=== PATIENT | female | born 1990 | race Two or more races ===

== ENCOUNTER 2024-06-15 09:18 | Inpatient (IN) ==
[2024-06-15] MEDS ORDERED: Lidocaine 1% VIAL 10 MG/ML 30 ML VIAL INJ PRN (09:52)
[2024-06-15] MEDS: Buffered Lidocaine 1% SYRIN 1 ml INTRADERM ONE (10:17)
[2024-06-15] MEDS: miSOPROStol 100 mcg TAB VAGINAL ONE (10:30)
[2024-06-15 10:55] LABS: Urine Benzodiazepine Screen None Detected (None Detect); Urine Cannabinoids Screen None Detected (None Detect); Urine Opiates Screen None Detected (None Detect)
[2024-06-15] MEDS: Dinoprostone 10 MG VAG.SUPP VAGINAL ONE (22:45)
[2024-06-16] MEDS: Ondansetron ODT 4 mg TAB 4 MG TAB PO PRN (04:06)
[2024-06-16] MEDS: Lactated Ringers 1000 ml BAG 1,000 ML IV ONE (09:34)
[2024-06-16 09:53] LABS: ABS Monocytes 0.6 10^3/uL (0.0-0.9); Hematocrit 33.2 % (35-45); Hemoglobin 11.3 g/dL (11.5-14.3); Lymphocyte % 8.8 %; Mean Corpuscular Hemoglobin 28.1 pg (27-33); Mean Corpuscular Volume 82.8 fL (80-97); Mean Platelet Volume 6.8 fL (7.5-11.2); Platelet Count 406 10^3/uL (150-450); Red Blood Count 4.01 10^6/uL (3.63-4.92); Red Cell Distribution Width 14.4 % (12-17); White Blood Count 11.7 10^3/uL (3.8-11.8)
[2024-06-16] MEDS: Lactated Ringers 1000 ml BAG 1,000 ML IV SCH (14:12)
[2024-06-16] MEDS: Oxytocin in LR 20,000 MILLI.UNIT/1,000 ML BAG IV SCH (14:15)
[2024-06-16] MEDS ORDERED: Calcium Carb (TUMS) 500 mg CHEW TAB PO PRN (20:53)
[2024-06-16] MEDS: Prochlorperazine 5 mg/ml 2 ml VIAL (10 mg) IV PRN (22:59)
[2024-06-16] MEDS: Nalbuphine 10 MG/ML 1 ML VIAL IV PRN (23:03)
[2024-06-17] MEDS ORDERED: Phenylephrine 40 mcg/mL 10mL (400mcg) SYRINGE ONE ×2 (02:15→09:40)
[2024-06-17] MEDS: OBEPIDURAL (200 ML) 200 ML EPIDURAL ONE (02:38)
[2024-06-17] MEDS ORDERED: Phenylephrine 40 mcg/mL 10mL (400mcg) SYRINGE IV PUSH PRN (02:47)
[2024-06-17 03:45] LABS: Urine Appearance Turbid; Urine Bilirubin Negative (Negative); Urine Blood Negative (Negative); Urine Color Light-Yellow; Urine Glucose Negative (Negative); Urine Ketones 1+ (Negative); Urine Nitrite Negative (Negative); Urine Protein Negative (Negative); Urine Urobilinogen Negative (Negative); Urine pH 7.5 (5.0-8.0)
[2024-06-17] MEDS: Phenylephrine 40 mcg/mL 10mL (400mcg) SYRINGE IV PUSH PRN (05:37)
[2024-06-17] MEDS ORDERED: ceFAZolin VIAL 2 GM in NS 0.9% 100 ml BAG 100 ML IVPB ONE (09:34)
[2024-06-17] MEDS ORDERED: Dexamethasone IV 4 MG/ML VIAL 1 ml VIAL ONE (09:40)
[2024-06-17] MEDS ORDERED: Oxytocin 10 UNITS/ML 1 ML VIAL ONE ×3 (09:40→10:51)
[2024-06-17] MEDS ORDERED: Ondansetron 4 mg VIAL 2 MG/ML 2 ml VIAL ONE (09:40)
[2024-06-17] MEDS ORDERED: Lidocaine 2% w/ EPI 1:200,000 MPF 20 ML SDV VIAL ONE (09:40)
[2024-06-17] MEDS: ceFAZolin 2 GM/50 ML BAG IV ONE (09:48)
[2024-06-17] MEDS: Sodium Citrate/Citric Acid LIQ 15 ML UDC PO PRN (09:48)
[2024-06-17] MEDS ORDERED: Morphine PF AMP (0.5MG/ML) 5 MG/10 ML AMP ONE (10:13)
[2024-06-17] MEDS: Methylergonovine 0.2 mg AMPULE 1 ml AMP IM ONE (10:15)
[2024-06-17] MEDS ORDERED: Metoclopramide 5 MG/ML VIAL (10 mg) IV PRN (10:34)
[2024-06-17] MEDS ORDERED: Ondansetron 4 mg VIAL 2 MG/ML 2 ml VIAL IV PRN (10:34)
[2024-06-17] MEDS ORDERED: Acetaminophen IV 1 GM/100ML 1,000 MG/100 ML BAG IV PRN (10:34)
[2024-06-17] MEDS ORDERED: Naloxone 0.4 mg VIAL 0.4 mg/ml 1 ml VIAL IV PUSH PRN (10:34)
[2024-06-17] MEDS: OBEPIDURAL (200 ML) 200 ML EPIDURAL SCH (10:45)
[2024-06-17] MEDS: Lidocaine 1.5% EPI 1:200,000 30 ML SDV ONE (10:46)
[2024-06-17] MEDS: Lactated Ringers 1000 ml BAG 1,000 ML IV SCH (10:46)
[2024-06-17] MEDS: Lactated Ringers 1000 ml BAG 1,000 ML IV ONE (10:46)
[2024-06-17] MEDS ORDERED: Witch Hazel PAD JAR TOPICAL PRN (10:53)
[2024-06-17] MEDS ORDERED: Glycerin ADULT 2.4 gm SUPP PR PRN (10:53)
[2024-06-17] MEDS ORDERED: Dibucaine 1% OINT 28.35 GM TUBE PR PRN (10:53)
[2024-06-17] MEDS: Carboprost Tromethamine 250 mcg 1 ml VIAL IM ONE (10:55)
[2024-06-17] MEDS: Methylergonovine 0.2 mg AMPULE 1 ml AMP ONE (12:40)
[2024-06-17] MEDS: Carboprost Tromethamine 250 mcg 1 ml VIAL ONE (12:41)
[2024-06-17] MEDS: Oxytocin in LR 20,000 MILLI.UNIT/1,000 ML BAG IV SCH (17:35)
[2024-06-18 06:35] LABS: ABS Basophils 0.1 10^3/uL (0.0-0.1); ABS Lymphocytes 1.8 10^3/uL (1.0-4.8); ABS Neutrophils 15.9 10^3/uL (1.5-7.6); Eosinophil % 0.1 %; Hematocrit 34.1 % (35-45); Hemoglobin 11.4 g/dL (11.5-14.3); Lymphocyte % 9.8 %; Mean Corpuscular Hemoglobin 28.2 pg (27-33); Mean Corpuscular Hgb Conc 33.5 g/dL (31-36); Mean Platelet Volume 6.6 fL (7.5-11.2); Platelet Count 392 10^3/uL (150-450); Red Blood Count 4.06 10^6/uL (3.63-4.92); Red Cell Distribution Width 14.6 % (12-17); White Blood Count 18.8 10^3/uL (3.8-11.8)
[2024-06-18 13:16] LABS: Syphilis IgG Screen Nonreactive
[2024-06-19 08:21] VITALS: BP 110/65
[2024-06-19] MEDS: Measles, Mumps,Rubella VACC 0.5 ML/VIAL SUBCUT ONE (15:25)
[2024-06-19] MEDS: Varicella Virus Vaccine Live 0.5 ML VIAL SUBCUT ONE (15:26)
== END 2024-06-19 12:42 | disposition home or self-care (01) | DRG 540 ==
LOC: MCHOBOUT 09:18 → MCHOB 09:57
PROVIDERS: ADMIT Obstetrics & Gynecology; ATTEND Obstetrics & Gynecology